=== PATIENT | female | born 1955 | race Caucasian/White ===

== ENCOUNTER → 2019-01-08 | Outpatient (CLI) | payer BC ==
[~2019-01-08] MED LIST: DIPH1TAB45 PO; FLUO20CA25 PO; HOLD METFORMIN - RECEIVED CONTRAST 20 ML VIAL IV SCH; HYDR1TAB PO; IOHEXOL 350 MG/ML 100 ML (OMNIPAQUE 350) VIAL IV ONE; ONDN4T PO; PROP40TA5 PO; QUIN20TA15 PO; QUIN40TA17 PO; TPR100T PO; TRAM50TA2 PO
[2019-01-08 11:08] LABS: BASOPHILS % (AUTO) 0 % (0-10); EOSINOPHILS # (AUTO) 0.2 10^3/uL (0.0-0.3); EOSINOPHILS % (AUTO) 2 % (0-10); HEMATOCRIT 41 % (35-52); HEMOGLOBIN 13.6 G/DL (11.5-16.0); LYMPHOCYTES # (AUTO) 1.6 X 10^3 (1.0-4.0); LYMPHOCYTES % (AUTO) 17 % (12-44); MEAN CORPUSCULAR HEMOGLOBIN 30 PG (25-34); MEAN CORPUSCULAR HGB CONC 33 G/DL (32-36); MEAN CORPUSCULAR VOLUME 89 FL (80-99); MEAN PLATELET VOLUME 9.5 FL (7.4-10.4); MONOCYTES # (AUTO) 0.7 X 10^3 (0.0-1.0); MONOCYTES % (AUTO) 7 % (0-12); NEUTROPHILS # (AUTO) 6.6 X 10^3 (1.8-7.8); NEUTROPHILS % (AUTO) 73 % (42-75); PLATELET COUNT 257 10^3/uL (130-400)
[2019-01-08 12:00] LABS: CALCIUM 9.3 MG/DL (8.5-10.1); CREATININE SERUM 1.1 MG/DL (0.60-1.30); POTASSIUM 3.3 MMOL/L (3.6-5.0)
--- NOTE | 2019-01-08 13:40 | Diagnostic Imaging Report ---
PROCEDURE: CT abdomen and pelvis with contrast. TECHNIQUE: Multiple contiguous axial images were obtained through the abdomen and pelvis after administration of intravenous contrast. INDICATION: Left lower quadrant pain. COMPARISON: No prior studies are available for comparison. FINDINGS: The lung bases are clear. Liver demonstrates diffuse low density consistent with hepatic steatosis. No discrete liver mass is identified. Gallbladder is surgically absent. No biliary ductal dilatation is seen. There is gas within the biliary tree. The pancreas and spleen are unremarkable. No adrenal mass is identified. Kidneys are unremarkable. Aorta is nonaneurysmal. The small and large bowel loops are normal caliber. There is diverticulosis involving the descending colon. Postsurgical changes involving the sigmoid are noted. There is moderate amount of pericolonic inflammatory stranding at the level of the mid descending colon consistent with acute diverticulitis. No abscess formation or bowel obstruction is seen. There is no ascites. The bladder is unremarkable. IMPRESSION: 1. Hepatic steatosis. There is pneumobilia. 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 2. Findings consistent with acute diverticulitis of the descending colon. No abscess formation or bowel obstruction is identified. Dictated by: Dictated on workstation # [id number]
== END ==
LOC: RAD 10:44
PROVIDERS: ATTEND Pediatrics
DX: K76.0 Fatty (change of) liver, not elsewhere classified (principal); K83.8 Other specified diseases of biliary tract; Z90.49 Acquired absence of other specified parts of digestive tract
CPT/HCPCS: 36415; 74177; 80048; 85025

== ENCOUNTER → 2019-11-08 | Outpatient (CLI) | payer MEDICARE, OTHER ==
[~2019-11-08] MED LIST changes: -HOLD METFORMIN - RECEIVED CONTRAST 20 ML VIAL IV SCH; -IOHEXOL 350 MG/ML 100 ML (OMNIPAQUE 350) VIAL IV ONE
--- NOTE | 2019-11-08 11:37 | Diagnostic Imaging Report ---
INDICATION: Back injury. TIME OF EXAM: 11:12 a.m. FINDINGS: Three views of lumbar spine were obtained. Curvature alignment is normal. Vertebral body heights are maintained. No acute compression fracture is detected. There is generalized degenerative disc disease with variable disc space narrowing and marginal spurring. There is multilevel facet arthropathy. Abdominal aorta is partially calcified. IMPRESSION: Lumbar spondylosis. No acute fracture is detected. Dictated by: Dictated on workstation # [id number]
--- NOTE | 2019-11-08 11:40 | Diagnostic Imaging Report ---
INDICATION: Right hip pain. TIME OF EXAM: 11:11 AM 2 views right hip show severe osteoarthritic changes of the right hip. There is medial and superior joint space narrowing. There is sclerosis and subchondral cyst formation of the femoral head and acetabulum. No fractures are seen. Right-sided rami are intact. IMPRESSION: Severe osteoarthritic changes of the right hip. Dictated by: Dictated on workstation # [id number]
== END ==
LOC: RAD FS 11:02
PROVIDERS: ATTEND Nurse Practitioner
DX: S76.011A Strain of muscle, fascia and tendon of right hip, initial encounter (principal); M16.11 Unilateral primary osteoarthritis, right hip; M43.06 Spondylolysis, lumbar region; X58.XXXA Exposure to other specified factors, initial encounter
CPT/HCPCS: 72100; 73502

== ENCOUNTER → 2023-06-09 | Outpatient (CLI) | payer MEDICARE, OTHER ==
[~2023-06-09] MED LIST changes: +BARIUM for suspension 96% w/w (Vanilla Silq Medium Density) PO ONE; +BARIUM for suspension 98% w/w (Vanilla Silq High Density) PO ONE
--- NOTE | 2023-06-09 09:15 | Diagnostic Imaging Report ---
Indication: Dysphagia and food getting stuck in the throat. Patient ingested effervescent crystals as well as thin and thick barium and imaging over the esophagus was performed in multiple obliquities. 49 seconds of fluoroscopic time was utilized. The reference air kerma is 34.3 mg. 40 images were obtained. Preliminary radiograph of the chest is unremarkable. Esophagus has a fairly smooth contour. There is no mass or stricture identified. No gastroesophageal reflux or hiatal hernia was demonstrated. Images of the stomach are unremarkable. IMPRESSION: Unremarkable esophagram. Dictated by: Dictated on workstation # [id number]
--- NOTE | 2023-06-09 14:18 | Diagnostic Imaging Report ---
PROCEDURE: US Thyroid. TECHNIQUE: Multiple real-time grayscale images were obtained of the thyroid in various projections. INDICATION: Dysphagia. History of thyroid nodules. COMPARISON: None. FINDINGS: Both thyroid lobes demonstrate smooth and homogenous background echotexture. Color flow Doppler demonstrates normal and symmetric vascularity bilaterally. The right lobe measures 4.0 cm in length, 1.9 cm AP, and 1.2 cm transverse. The left lobe measures 3.0 cm in length, 1.3 cm AP, and 1.5 cm transverse. The isthmus measures 0.3 cm. Solid subcentimeter nodule seen in the left lobe of the thyroid measuring 0.5 x 0.5 x 0.4 cm. IMPRESSION: 1. Solid subcentimeter nodule in the left lobe of thyroid measuring 0.5 cm. Based on size criteria and imaging characteristics no dedicated follow-up is recommended. Dictated by: Dictated on workstation # [id number]
== END ==
LOC: RAD 08:30
PROVIDERS: ATTEND Otolaryngology Otolaryngology/Facial Plastic Surgery
DX: E04.2 Nontoxic multinodular goiter (principal); R13.10 Dysphagia, unspecified
CPT/HCPCS: 74220; 76536